=== PATIENT | male | born 1990 | race Caucasian/White ===

== ENCOUNTER 2025-02-26 19:31 | Emergency (ER) | payer SELFPAY ==
[~2025-02-26] VITALS: Ht 182.9 cm; Wt 87.0 kg
[2025-02-26 19:53] VITALS: TEMP 98.1
[2025-02-26 20:18] LABS: MEAN PLATELET VOLUME 6.6 FL (7.4-10.4); RED CELL DISTRIBUTION WIDTH 13.2 % (11.5-14.5)
[2025-02-26 20:32] LABS: CREATININE 1.20 MG/DL (0.60-1.10); TOTAL CARBON DIOXIDE 28.5 MMOL/L (24-32); eCRCL 96 ML/MIN; eGFR 70 ML/MIN
[2025-02-27 01:15] VITALS: BP 101/69; PULSE 54; RESP 16; O2SAT 99
--- NOTE | 2025-02-27 01:34 | RADIOLOGY REPORT ---
INDICATION: right flank pain TECHNIQUE: Multiple real-time sonographic images of the kidneys and bladder were obtained. COMPARISON: None FINDINGS: RIGHT kidney measures 11.9 cm in length. Mild hydronephrosis. LEFT kidney measures 12 cm in length. No hydronephrosis. The bladder was not assessed. IMPRESSION: 1. Mild hydronephrosis, no obvious etiology by ultrasound. 2. Unremarkable left kidney.
--- NOTE | 2025-02-27 01:57 | Physician Documentation ---
History of Present Illness Chief Complaint: Flank Pain Stated Complaint: STENT COMPLICATIONS Time Seen by MD: 20:21 OK to notify your PCP?: Yes Source: patient, RN/MD, RN notes reviewed, old records Mode of Arrival: Ambulatory Exam Limitations: no limitations HPI Patient states he is having complications of his urethral stents. States it was placed four months ago was supposed to be removed November 09 that did not happen he continues to have pain nausea vomiting hematuria recently discharged from [facility] for which he was seen originally at [facility] in [place] last night. Patient is now here for evaluation. Patient states that he was seen by a urologist who does not want to take the stent out it has been a long- time patient is frustrated he states that he is obstructed can not urinate he says he septic and he is demanding that the stent is taken out. Patient has no primary care physician. He was seen at [place] later at [facility] he has been told multiple times out of follow up he states he is trying to do that unsuccessfully. Medication Reconciliation Allergies: Coded Allergies: ceftriaxone (Verified Allergy, Unknown, 02/26/25) Uncoded Allergies: PENICILLIN (Allergy, Unknown, 02/26/25) Past Medical History Past Medical History: Kidney Stones, *PSYCH* Past Surgical History: other ( ureter stent) Review of Systems All Other Systems at this time: Reviewed and Negative Physical Exam Vital Signs: RN Vital Signs have been reviewed: Yes, Temperature: 98.1, Heart Rate: 82, Respiratory Rate: 16, BP: 111/81, Pulse Oximetry: 99, Weight: 87.000 Oxygen Flow Rate: 0 Progress Results/Orders Reviewed/noted all lab results: Yes Results/Orders Orders - ARETHA VILLALOBOS MD Urinalysis, Cult If Indicated (02/26/25 19:57) [facility] (02/26/25 21:12) Ultrasound Kidney Non Vasc (02/26/25 23:24) Completed Orders - ARETHA VILLALOBOS MD Cbc/Diff (02/26/25 19:57) CMP (02/26/25 19:57) Ultrasound Kidney Non Vasc (02/26/25 23:24) Vital Signs 02/26/25 02/26/25 02/26/25 19:53 20:20 22:59 Temp 98.1 Pulse 88 82 Resp 16 12 16 B/P (MAP) 116/80 111/81 (91) Pulse Ox 98 99 O2 Flow Rate 0 0 Laboratory Tests Test 02/26/25 20:09 White Blood Count 9.3 Red Blood Count 5.16 Hemoglobin 16.1 Hematocrit 47.3 Mean Corpuscular Volume 91.6 Mean Corpuscular Hemoglobin 31.3 H Mean Corpuscular Hemoglobin Concent 34.2 Red Cell Distribution Width 13.2 Platelet Count 435 Mean Platelet Volume 6.6 L Neutrophils (%) (Auto) 48.7 Lymphocytes (%) (Auto) 36.6 Monocytes (%) (Auto) 9.5 Eosinophils (%) (Auto) 4.4 Basophils (%) (Auto) 0.8 Neutrophils # (Auto) 4.5 Lymphocytes # (Auto) 3.4 Monocytes # (Auto) 0.9 Eosinophils # (Auto) 0.4 Basophils # (Auto) 0.1 CBC Comment Sodium Level 137 Potassium Level 4.0 Chloride Level 100 Carbon Dioxide Level 28.5 Anion Gap 9 Blood Urea Nitrogen 13 Creatinine 1.20 H Estimated GFR/1.73 m2 70 BUN/Creatinine Ratio 10.8 Glucose Level 114 H Calcium Level 9.5 Total Bilirubin 0.2 Aspartate Amino Transf (AST/SGOT) 16 Alanine Aminotransferase (ALT/SGPT) 24 Alkaline Phosphatase 89 Total Protein 7.6 Albumin 3.7 Globulin 3.9 Albumin/Globulin Ratio 0.9 L Chemistry Comments Re-Evaluation Re-Evaluation : Re-Evaluation: Unchanged Progress Patient is sleeping comfortably. Patient has no signs of sepsis for severe pain. I had to shake him multiple times to wake him up. Patient does not have tachycardia no leukocytosis patient is not producing urine states he is obstructed and unable to pee and has not urinated because the stent is in place. Security is at bedside patient is argumentative. Patient is clearly frustrated was understandable however he does not want to work with the system to get a workup. I tried to explain to the patient showing up at multiple ERs will not accomplish in his goal that he needs to follow up with the original urologist if not see a primary care physician established relationship get a referral to a new one. I offered him a referral to Urology however the patient was angry in his not interested his only interest at this time is sleeping and having his stent removed. Also patient did urinates an hour ago did not produce a urine sample for me. Patient is refusing additional medical treatment will be escorted out of the ER. EKG/XRAY/CT/US/VASC/MRI Ultrasound : Ultrasound of: abdomen Impression INDICATION: right flank pain TECHNIQUE: Multiple real-time sonographic images of the kidneys and bladder were obtained. COMPARISON: None FINDINGS: RIGHT kidney measures 11.9 cm in length. Mild hydronephrosis. LEFT kidney measures 12 cm in length. No hydronephrosis. The bladder was not assessed. IMPRESSION: 1. Mild hydronephrosis, no obvious etiology by ultrasound. 2. Unremarkable left kidney. Medical Decision Making Additional info obtained from: old records Differential Dx:Considerations: Include: Aortic dissection, Appendicitis, Bowel obstruction, Cholangitis, Cholelithasis, Constipation, Diverticular disease, Esophageal rupture, Esophagitis, Gastritis/PUD, Gastroenteritis, GI hemorrhage, Hernia, Hepatitis, Inflammatory BD, Ischemic bowel, Pancreatitis, Porphyria, Testicular torsion, Trauma, intraabdominal, Urinary obstruction, Urinary tract infection, Urolithiasis, Other Departure Disposition: 01 HOME / SELF CARE / HOMELESS Impression: Primary Impression: Mild hydronephrosis Additional Impression: History of urethral stent Condition: Stable Discharge Instructions: Renal [facility] Referrals: NO PRIMARY CARE PROVIDER (PCP) Education Educated: Patient Educated regarding: diagnosis, need for follow up, other Signature Scribe Signature: No Attestation: The note accurately reflects work and decisions made by me.Aretha Villalobos MD 02/27/25 01:57 ARETHA VILLALOBOS MD Feb 27, 2025 01:57
[2025-02-27] MEDS: normal saline 1000ML IV soln IVB ONE (02:13)
[2025-02-27] MEDS ORDERED: NAPR-56 PO (02:15)
[2025-02-27] MEDS ORDERED: TAMS-55 PO (02:15)
== END 2025-02-27 02:22 | disposition home or self-care (01) ==
LOC: ER 19:32
DX: N13.30 Unspecified hydronephrosis (principal); Z88.1 Allergy status to other antibiotic agents
CPT/HCPCS: 36415; 76770; 80053; 85025; 99284